=== PATIENT | male | born 1935 | race Caucasian/White ===

== ENCOUNTER 2017-08-24 09:06 | Emergency (ER) | payer OTHER ==
[~2017-08-24] VITALS: Ht 182.9 cm; Wt 84.0 kg
[2017-08-24 09:21] VITALS: BP_SYST 175; BP_DIAS 8; BP_DIAS 88; PULSE 86; RESP 16; TEMP 97.6; O2SAT 99
[2017-08-24 09:32] VITALS: BP 197/93; PULSE 78; RESP 16; O2SAT 98
[2017-08-24 09:41] VITALS: O2SAT 98
[2017-08-24 09:42] VITALS: BP 205/86; PULSE 79
[2017-08-24] MEDS ORDERED: SODIUM CHLORIDE 0.9% FLUSH 10 ML FLUSH IVF PRN (09:45)
--- NOTE | 2017-08-24 09:45 | PD ---
HPI Chief Complaint: Syncope/Near-Syncope Time Seen by Provider: 09:35 Travel History International Travel<30 days: No Contact w/Intl Traveler<30days: No Traveled to known affect area: No History of Present Illness HPI 81-year-old male patient with history of CAD status post stenting and CABG, presents to the ER today brought in by his family because he had 2 syncopal episodes today. Patient thinks that he remembers everything but he states that he went down to the ground twice this morning, but is not sure why. He does not think he hit his head, denies any injuries but he states that he did have some dizziness before going down. He does not remember tripping or losing balance. He denies any current chest pains, trouble breathing, fevers, or other symptoms. Modifying Factors: None Associated Signs & Symptoms: Syncopal episodes Risk Factors: Elderly PFSH Past Medical History Hx Anticoagulant Therapy: Yes (plavix) Coronary Artery Disease: Yes Diminished Hearing: Yes (bilat ) Hypertension: Yes Past Surgical History Coronary Artery Bypass Graft: Yes Coronary Stent: Yes Social History Alcohol Use: No Tobacco Use: Yes (10 a day ) Substance Use: No Allergies-Medications (Allergen,Severity, Reaction): Coded Allergies: No Known Allergies (Unverified , 08/24/17) Reported Meds & Prescriptions Reported Meds & Active Scripts Active Reported Coenzyme Q-10 (Ubidecarenone) 200 Mg Capsule PO DAILY Fish Oil [place]-3 Softgel ([place]-3S/Dha/Epa/Fish Oil) 980 Mg-253 Mg-647 Mg-1,400 Mg Capsule.dr PO DAILY Vitamin C (Ascorbic Acid) 250 Mg Chew 250 Mg CHEW DAILY Multiple Vitamin 1 Tab 1 Tab PO DAILY Tramadol (Tramadol HCl) 50 Mg Tab 50 Mg PO Q6H PRN Aspirin 81 Mg Chew 81 Mg CHEW DAILY Nexium (Esomeprazole DR) 40 Mg Capdr 40 Mg PO DAILY Fenofibrate 160 Mg Tab 160 Mg PO DAILY Crestor (Rosuvastatin Calcium) 20 Mg Tab 20 Mg PO DAILY Levothyroxine (Levothyroxine Sodium) 50 Mcg Tab 50 Mcg PO DAILY Losartan (Losartan Potassium) 100 Mg Tab 100 Mg PO DAILY Amlodipine (Amlodipine Besylate) 5 Mg Tab 5 Mg PO DAILY Isosorbide Mononitrate ER (Isosorbide Mononitrate) 30 Mg Yonathan 30 Mg PO DAILY Nitrostat SL (Nitroglycerin) 0.4 Mg Subl 0.4 Mg SL DIRECTED PRN 1 tablet under the tongue as needed for chest pain. Repeat every 5 minutes for a total of 3 DOSES or call 911 if NO relief. Clopidogrel (Clopidogrel Bisulfate) 75 Mg Tab 75 Mg PO DAILY Review of Systems Except as stated in HPI: all other systems reviewed are Neg Physical Exam Narrative GENERAL: Well-developed elderly white male patient currently in no acute distress. Awake and oriented 3. SKIN: Focused skin assessment warm/dry. HEAD: Atraumatic. Normocephalic. EYES: Pupils equal and round. No scleral icterus. No injection or drainage. ENT: No nasal bleeding or discharge. Mucous membranes pink and moist. NECK: Trachea midline. No JVD. Supple. CARDIOVASCULAR: Regular rate and rhythm. No murmur appreciated. RESPIRATORY: No accessory muscle use. Clear to auscultation. Breath sounds equal bilaterally. GASTROINTESTINAL: Abdomen soft, non-tender, nondistended. Hepatic and splenic margins not palpable. Pelvis: Stable and nontender to palpation. MUSCULOSKELETAL: No obvious deformities. No clubbing. No cyanosis. No edema. NEUROLOGICAL: Awake and alert. No obvious cranial nerve deficits. Motor grossly within normal limits. Normal speech. PSYCHIATRIC: Appropriate mood and affect; insight and judgment normal. Data Data Last Documented VS Vital Signs Date Time Temp Pulse Resp B/P (MAP) Pulse Ox O2 Delivery O2 Flow Rate FiO2 08/24/17 10:39 69 166/83 (110) 08/24/17 09:41 98 Room Air 08/24/17 09:32 16 08/24/17 09:21 97.6 Orders Orders Electrocardiogram (08/24/17 09:35) Complete Blood Count With Diff (08/24/17 09:35) Comprehensive Metabolic Panel (08/24/17 09:35) Ckmb (Isoenzyme) Profile (08/24/17 09:35) Troponin I (08/24/17 09:35) Act Partial Throm Time (Ptt) (08/24/17 09:35) Prothrombin Time / Inr (Pt) (08/24/17 09:35) Urinalysis - C+S If Indicated (08/24/17 09:35) Chest, Single Ap (08/24/17 09:35) Ct Brain W/O Iv Contrast(Rout) (08/24/17 09:35) Ecg Monitoring (08/24/17 09:35) Iv Access Insert/Monitor (08/24/17 09:35) Oximetry (08/24/17 09:35) Sodium Chloride 0.9% Flush (Ns Flush) (08/24/17 09:45) CKMB (08/24/17 09:45) CKMB% (08/24/17 09:45) Labs Laboratory Tests Test 08/24/17 09:45 08/24/17 10:45 White Blood Count 8.5 TH/MM3 Red Blood Count 4.42 MIL/MM3 Hemoglobin 13.1 GM/DL Hematocrit 39.5 % Mean Corpuscular Volume 89.3 FL Mean Corpuscular Hemoglobin 29.7 PG Mean Corpuscular Hemoglobin Concent 33.3 % Red Cell Distribution Width 13.8 % Platelet Count 258 TH/MM3 Mean Platelet Volume 7.8 FL Neutrophils (%) (Auto) 65.8 % Lymphocytes (%) (Auto) 23.4 % Monocytes (%) (Auto) 8.4 % Eosinophils (%) (Auto) 1.8 % Basophils (%) (Auto) 0.6 % Neutrophils # (Auto) 5.6 TH/MM3 Lymphocytes # (Auto) 2.0 TH/MM3 Monocytes # (Auto) 0.7 TH/MM3 Eosinophils # (Auto) 0.2 TH/MM3 Basophils # (Auto) 0.1 TH/MM3 CBC Comment DIFF FINAL Differential Comment Prothrombin Time 10.5 SEC Prothromb Time International Ratio 1.0 RATIO Activated Partial Thromboplast Time 28.2 SEC Blood Urea Nitrogen 20 MG/DL Creatinine 1.22 MG/DL Random Glucose 91 MG/DL Total Protein 7.5 GM/DL Albumin 3.7 GM/DL Calcium Level 9.1 MG/DL Alkaline Phosphatase 60 U/L Aspartate Amino Transf (AST/SGOT) 20 U/L Alanine Aminotransferase (ALT/SGPT) 19 U/L Total Bilirubin 0.3 MG/DL Sodium Level 140 MEQ/L Potassium Level 4.6 MEQ/L Chloride Level 109 MEQ/L Carbon Dioxide Level 25.8 MEQ/L Anion Gap 5 MEQ/L Estimat Glomerular Filtration Rate 57 ML/MIN Total Creatine Kinase 257 U/L Creatine Kinase MB 3.5 NG/ML Troponin I LESS THAN 0.02 NG/ML Urine Color YELLOW Urine Turbidity CLEAR Urine pH 6.5 Urine Specific [place] 1.011 Urine Protein NEG mg/dL Urine Glucose (UA) NEG mg/dL Urine Ketones NEG mg/dL Urine Occult Blood NEG Urine Nitrite NEG Urine Bilirubin NEG Urine Urobilinogen LESS THAN 2.0 MG/DL Urine Leukocyte Esterase NEG Urine RBC 1 /hpf Urine WBC LESS THAN 1 /hpf Urine Squamous Epithelial Cells <1 /hpf Microscopic Urinalysis Comment CULT NOT INDICATED MDM Medical Decision Making Medical Screen Exam Complete: Yes Emergency Medical Condition: Yes Medical Record Reviewed: Yes Interpretation(s) Laboratory Tests Test 08/24/17 09:45 08/24/17 10:45 Red Blood Count 4.42 MIL/MM3 (4.50-5.90) Monocytes (%) (Auto) 8.4 % (0.0-8.0) Blood Urea Nitrogen 20 MG/DL (7-18) Chloride Level 109 MEQ/L (98-107) Estimat Glomerular Filtration Rate 57 ML/MIN (>89) Troponin I LESS THAN 0.02 NG/ML Last [address] 08/24/17934 Signed Impressions: Service Date/Time: August 09:51 - CONCLUSION: 1. Mild periventricular and subcortical white matter small vessel ischemic changes bilaterally. 2. 3.0 x 3.8 centimeter CSF collection anterior to left temporal lobe consistent with arachnoid cyst or possible marked atrophy of the anterior temporal lobe. 3. No acute infarct, acute hemorrhage or midline shift. Chidi Aguirre MD Chest X-Ray 08/24/17934 Signed Impressions: Service Date/Time: August 09:41 - CONCLUSION: 1. No acute cardiopulmonary disease. James Mills MD Differential Diagnosis Questionable syncopal episodes versus trip and fall, rule out intracranial injuries Narrative Course Patient has no focal neurological deficits. He is awake and alert in the ER. Vital signs do show fairly elevated blood pressure initially but it came down on its own. He is not reporting any chest pains or shortness of breath. EKG did not show any signs of acute current dysrhythmias. Lab work was fairly unremarkable and CAT scan of the brain was negative for any signs of acute processes or injuries. At this point considering the 2 falls, I have discussed observation admission for further evaluation with the patient but he is declining at this time. I cannot tell him that this is not cardiac and fortunately since we are not sure what happened. I have discussed this with the patient as well. He reports that he has had a recent carotid ultrasounds and cardiac ultrasound and workup done just a year ago. At this point, he states he will follow-up as an outpatient. He should return for any further episodes. He should be careful falls. The plan was discussed with him and he states understanding and does not want to stay for further evaluation. Diagnosis Primary Impression: Fall at home Disposition: 01 DISCHARGE HOME Condition: Stable Kodi Manjarrez MD Aug 24, 2017 09:45
[2017-08-24 09:54] LABS: AUTOMATED NEUTROPHIL # 5.6 TH/MM3 (1.8-7.7); BASOPHIL # 0.1 TH/MM3 (0-0.2); BASOPHIL % 0.6 % (0.0-2.0); EOSINOPHIL # 0.2 TH/MM3 (0-0.4); EOSINOPHIL % 1.8 % (0.0-4.0); HEMATOCRIT 39.5 % (39.0-51.0); HEMOGLOBIN 13.1 GM/DL (13.0-17.0); LYMPH % 23.4 % (9.0-44.0); MEAN CELL VOLUME 89.3 FL (80.0-100.0); MEAN CORPUSCULAR HEMOGLOBIN 29.7 PG (27.0-34.0); MEAN CORPUSCULAR HGB CONC 33.3 % (32.0-36.0); MEAN PLATELET VOLUME 7.8 FL (7.0-11.0); MONO % 8.4 % (0.0-8.0); MONOCYTE # 0.7 TH/MM3 (0-0.9); NEUT % 65.8 % (16.0-70.0); PLATELET COUNT 258 TH/MM3 (150-450); RED BLOOD COUNT 4.42 MIL/MM3 (4.50-5.90); RED CELL DISTRIBUTION WIDTH 13.8 % (11.6-17.2); WHITE BLOOD COUNT 8.5 TH/MM3 (4.0-11.0)
--- NOTE | 2017-08-24 09:55 | RADRPT ---
EXAM DATE/TIME: 08/24/2017 09:41 [facility] COMPARISON: No previous studies available for comparison. INDICATIONS : Syncopal episode. MEDICAL HISTORY : Hypertension. Current smoker. SURGICAL HISTORY : CABG. Cardiac stents. ENCOUNTER: Initial ACUITY: 1 day PAIN SCORE: 0/10 LOCATION: Bilateral chest FINDINGS: A single view of the chest demonstrates the lungs to be symmetrically aerated without evidence of mas s, infiltrate or effusion. Postsurgical features of median sternotomy and prior CABG. The cardiomedi astinal contours are unremarkable. Osseous structures are intact. CONCLUSION: 1. No acute cardiopulmonary disease. James Mills MD on August 24, 2017 at 9:53 Board Certified Radiologist. This report was verified electronically.
[2017-08-24 10:02] LABS: PROTHROMBIN TIME - PATIENT 10.5 SEC (9.8-11.6)
--- NOTE | 2017-08-24 10:08 | RADRPT ---
EXAM DATE/TIME: 08/24/2017 09:51 [facility] COMPARISON: No previous studies available for comparison. INDICATIONS : Syncopal episode this morning, dizziness. RADIATION DOSE: 56.35 CTDIvol (mGy) MEDICAL HISTORY : Hypertension. SURGICAL HISTORY : CABG Cardiac stents ENCOUNTER: Initial ACUITY: 1 day PAIN SCALE: 3/10 LOCATION: cranial TECHNIQUE: Multiple contiguous axial images were obtained of the head. Using automated exposure control and adj ustment of the mA and/or kV according to patient size, radiation dose was kept as low as reasonably a chievable to obtain optimal diagnostic quality images. DICOM format image data is available electro nically for review and comparison. FINDINGS: The ventricles, sulci and cisterns are normal. There is a CSF collection anterior to the left tempora l lobe suggestive of arachnoid cyst or possible marked atrophy of the anterior temporal lobe. This me asures 3.0 x 3.8 cm. Mild periventricular and subcortical white matter small vessel ischemic changes are noted bilaterally. No acute infarct, acute hemorrhage or midline shift is noted. Bone windows are unremarkable. CONCLUSION: 1. Mild periventricular and subcortical white matter small vessel ischemic changes bilaterally. 2. 3.0 x 3.8 centimeter CSF collection anterior to left temporal lobe consistent with arachnoid cyst or possible marked atrophy of the anterior temporal lobe. 3. No acute infarct, acute hemorrhage or midline shift. Chidi Aguirre MD on August 24, 2017 at 10:03 Board Certified Radiologist. This report was verified electronically.
[2017-08-24 10:27] LABS: ALBUMIN 3.7 GM/DL (3.4-5.0); ALT (GPT) 19 U/L (12-78); AST (GOT) 20 U/L (15-37); BICARBONATE 25.8 MEQ/L (21.0-32.0); BLOOD UREA NITROGEN 20 MG/DL (7-18); CALCIUM 9.1 MG/DL (8.5-10.1); CHLORIDE 109 MEQ/L (98-107); CREATININE 1.22 MG/DL (0.60-1.30); GLOMERULAR FILTRATION RATE 57 ML/MIN (>89); GLUCOSE,RANDOM 91 MG/DL (74-106); SODIUM (NA) 140 MEQ/L (136-145)
[2017-08-24 10:31] LABS: ALKALINE PHOSPHATASE 60 U/L (45-117); TOTAL BILIRUBIN ADULT 0.3 MG/DL (0.2-1.0); TOTAL PROTEIN 7.5 GM/DL (6.4-8.2); TROPONIN I LESS THAN 0.02 NG/ML (0.02-0.05)
[2017-08-24] MEDS ORDERED: AMLO5TAB2 PO (10:35)
[2017-08-24] MEDS ORDERED: CLOP75TA PO (10:35)
[2017-08-24] MEDS ORDERED: FENO160T PO (10:35)
[2017-08-24] MEDS ORDERED: NITR0.4S SL (10:35)
[2017-08-24] MEDS ORDERED: ROSU20 PO (10:35)
[2017-08-24] MEDS ORDERED: ASPI-516 CHEW (10:35)
[2017-08-24] MEDS ORDERED: TRAM50TA PO (10:35)
[2017-08-24] MEDS ORDERED: ISOS30TA3 PO (10:35)
[2017-08-24] MEDS ORDERED: LOSA100T PO (10:35)
[2017-08-24] MEDS ORDERED: LEVO50TA4 PO (10:35)
[2017-08-24] MEDS ORDERED: NEXI40CA PO (10:35)
[2017-08-24] MEDS ORDERED: FISH13602 PO (10:38)
[2017-08-24] MEDS ORDERED: VITA250C3 CHEW (10:38)
[2017-08-24] MEDS ORDERED: MULTTAB67 PO (10:38)
[2017-08-24] MEDS ORDERED: UBID200C3 PO (10:38)
[2017-08-24 10:39] VITALS: BP 166/83; PULSE 69
[2017-08-24 11:16] LABS: BILIRUBIN, URINE NEG (NEG); BLOOD, URINE NEG (NEG); GLUCOSE,URINE NEG (NEG); KETONE, URINE NEG (NEG); NITRITE,URINE NEG (NEG); PH, URINE 6.5 (5.0-8.5); SQUAMOUS EPITHELIAL CELL URINE <1 /hpf (0-5); URINE COLOR YELLOW (YELLW/STRAW); URINE LEUKOCYTE ESTERASE NEG (NEG)
--- NOTE | 2017-08-27 12:40 | EKG ---
Date Performed: 08/24/2017 Time Performed: 09:37:55 PTAGE: 81 years EKG: Sinus rhythm MODERATE INTRAVENTRICULAR CONDUCTION DELAY BORDERLINE ECG NO PREVIOUS TRACING DOCTOR: Kyrie Hutson Interpretating Date/Time 08/27/2017 12:39:16
== END 2017-08-24 11:39 | disposition home or self-care (01) ==
LOC: NEPE 09:06
DX: R55 Syncope and collapse (principal); I25.10 Atherosclerotic heart disease of native coronary artery without angina pectoris; I10 Essential (primary) hypertension; H91.93 Unspecified hearing loss, bilateral; F17.200 Nicotine dependence, unspecified, uncomplicated; Z79.02 Long term (current) use of antithrombotics/antiplatelets; Z95.1 Presence of aortocoronary bypass graft; Z79.82 Long term (current) use of aspirin; Z79.899 Other long term (current) drug therapy
CPT/HCPCS: 70450; 71045; 80053; 81001; 82550; 82552; 84484; 85025; 85610; 85730; 93005; 99285

== ENCOUNTER 2017-08-27 16:23 | Emergency (ER) | payer OTHER ==
[~2017-08-27] VITALS: Ht 182.9 cm; Wt 80.0 kg
[~2017-08-27 16:23] MED LIST: AMLO5TAB2 PO; ASPI-516 CHEW; CLOP75TA PO; FENO160T PO; FISH13602 PO; ISOS30TA3 PO; LEVO50TA4 PO; LOSA100T PO; MULTTAB67 PO; NEXI40CA PO; NITR0.4S SL; ROSU20 PO; TRAM50TA PO; UBID200C3 PO; VITA250C3 CHEW
[2017-08-27 16:34] VITALS: BP 171/79; PULSE 74; RESP 16; TEMP 98.1; O2SAT 98
--- NOTE | 2017-08-27 19:09 | PD ---
HPI Chief Complaint: Skin Problem Time Seen by Provider: 18:59 Travel History International Travel<30 days: No Contact w/Intl Traveler<30days: No Traveled to known affect area: No History of Present Illness HPI 81-year-old male here for evaluation of abnormal skin coloration to right breast. Patient was seen in the emergency department 3 days ago after a fall. Chest x-ray at that time showed no acute disease. He is on Plavix. He states that later that night he did notice the area of discoloration on his breast. He denies pain. No dyspnea. He began to look up his symptoms online and came across the possibility of melanoma. This concerned him, so he is here for evaluation. PFSH Past Medical History Hx Anticoagulant Therapy: Yes (PLAVIX) Coronary Artery Disease: Yes Diminished Hearing: Yes (bilat ) Hypertension: Yes Tetanus Vaccination: < 5 Years Influenza Vaccination: Yes Past Surgical History Coronary Artery Bypass Graft: Yes Coronary Stent: Yes Social History Alcohol Use: No Tobacco Use: Yes (10 a day ) Substance Use: No Allergies-Medications (Allergen,Severity, Reaction): Coded Allergies: No Known Allergies (Unverified , 08/27/17) Reported Meds & Prescriptions Reported Meds & Active Scripts Active Reported Coenzyme Q-10 (Ubidecarenone) 200 Mg Capsule PO DAILY Fish Oil [place]-3 Softgel ([place]-3S/Dha/Epa/Fish Oil) 980 Mg-253 Mg-647 Mg-1,400 Mg Capsule.dr PO DAILY Vitamin C (Ascorbic Acid) 250 Mg Chew 250 Mg CHEW DAILY Multiple Vitamin 1 Tab 1 Tab PO DAILY Tramadol (Tramadol HCl) 50 Mg Tab 50 Mg PO Q6H PRN Aspirin 81 Mg Chew 81 Mg CHEW DAILY Nexium (Esomeprazole DR) 40 Mg Capdr 40 Mg PO DAILY Fenofibrate 160 Mg Tab 160 Mg PO DAILY Crestor (Rosuvastatin Calcium) 20 Mg Tab 20 Mg PO DAILY Levothyroxine (Levothyroxine Sodium) 50 Mcg Tab 50 Mcg PO DAILY Losartan (Losartan Potassium) 100 Mg Tab 100 Mg PO DAILY Amlodipine (Amlodipine Besylate) 5 Mg Tab 5 Mg PO DAILY Isosorbide Mononitrate ER (Isosorbide Mononitrate) 30 Mg Yonathan 30 Mg PO DAILY Nitrostat SL (Nitroglycerin) 0.4 Mg Subl 0.4 Mg SL DIRECTED PRN 1 tablet under the tongue as needed for chest pain. Repeat every 5 minutes for a total of 3 DOSES or call 911 if NO relief. Clopidogrel (Clopidogrel Bisulfate) 75 Mg Tab 75 Mg PO DAILY Review of Systems Except as stated in HPI: all other systems reviewed are Neg Physical Exam Narrative GENERAL: Well-developed, well-nourished, awake, alert, no apparent distress. SKIN: Focused skin assessment warm/dry. Approximately 8 x 2 cm horizontal area of ecchymosis just inferior to the right nipple with slight yellowish discoloration around the edges without underlying mass or hematoma. No tenderness. This is consistent with ecchymosis. HEAD: Atraumatic. Normocephalic. EYES: Pupils equal and round. No scleral icterus. No injection or drainage. ENT: Mucous membranes pink and moist. NECK: Trachea midline. No JVD. CARDIOVASCULAR: Regular rate and rhythm. No murmur appreciated. RESPIRATORY: No accessory muscle use. Clear to auscultation. Breath sounds equal bilaterally. GASTROINTESTINAL: Abdomen soft, non-tender, nondistended. MUSCULOSKELETAL: No obvious deformities. No clubbing. No cyanosis. No edema. Skin exam as above. Right anterior chest wall without crepitus, without step- off, without paradoxical chest wall movements. NEUROLOGICAL: Awake and alert. No obvious cranial nerve deficits. Motor grossly within normal limits. Normal speech. PSYCHIATRIC: Appropriate mood and affect; insight and judgment normal. Data Data Last Documented VS Vital Signs Date Time Temp Pulse Resp B/P (MAP) Pulse Ox O2 Delivery O2 Flow Rate FiO2 08/27/17 16:34 98.1 74 16 171/79 (109) 98 MDM Medical Decision Making Medical Screen Exam Complete: Yes Emergency Medical Condition: Yes Differential Diagnosis Chest wall contusion, rib fracture, ecchymosis Narrative Course Vital signs reviewed. Pulse ox is 98% on room air. The patient has an area of ecchymosis to his right breast inferior to his right nipple. This site is nontender. He is on Plavix and had a fall 3 days ago. Patient was reassured. He has an appointment with his primary care physician in 2 days and I told him to make his primary care physician aware of this. Diagnosis Primary Impression: Superficial bruising of chest wall Qualified Codes: S20.211A - Contusion of right front wall of thorax, initial encounter Referrals: Primary Care Physician 2 days Additional Instructions: Follow-up with your primary care physician in 2 days as scheduled. Return to the emergency department for worsening symptoms or any other concerns. Disposition: 01 DISCHARGE HOME Condition: Peyman Levine MD Aug 27, 2017 19:09
== END 2017-08-27 19:32 | disposition home or self-care (01) ==
LOC: NEPD 16:23
DX: S20.211A Contusion of right front wall of thorax, initial encounter (principal); I25.10 Atherosclerotic heart disease of native coronary artery without angina pectoris; I10 Essential (primary) hypertension; F17.210 Nicotine dependence, cigarettes, uncomplicated; W19.XXXA Unspecified fall, initial encounter; Z79.01 Long term (current) use of anticoagulants; Z95.5 Presence of coronary angioplasty implant and graft; Z95.1 Presence of aortocoronary bypass graft
CPT/HCPCS: 99282